=== PATIENT | female | born 1995 | race Caucasian/White ===

== ENCOUNTER 2018-06-22 14:05 | Emergency (ER) | payer OTHER, SELFPAY ==
[2018-06-22 14:07] VITALS: BP 161/82; PULSE 103; RESP 17; TEMP 36.3; O2SAT 100; BMI 32.4
[2018-06-22 15:21] VITALS: BP 141/85; PULSE 97; RESP 25; O2SAT 100
[2018-06-22 15:22] VITALS: O2SAT 100
--- NOTE | 2018-06-22 15:37 | EKG12_ITS ---
Test Reason : COUGH Blood Pressure : / mmHG Vent. Rate : 086 BPM Atrial Rate : 086 BPM P-R Int : 132 ms QRS Dur : 094 ms QT Int : 386 ms P-R-T Axes : 052 033 017 degrees QTc Int : 461 ms Normal sinus rhythm Normal ECG Confirmed by BLANCA HATHAWAY, CESAR ([id number]), brands editor POLINA ESPINOSA ([id number] on 06/24/2018 4:03:37 PM Referred By: PAT Confirmed By:CESAR RIOS MD
[2018-06-22 16:13] LABS: Internal QC Validated? YES +Cl - CLEAR BKGD; Pregnancy, Urine Negative Negative
[2018-06-22 16:22] LABS: Absolute Lymphocyte Count 2.49 X10^3/ul (0.83-4.51); Absolute Neutrophil Count 5.6 X10^3/uL (2.0-7.7); Basophil# 0.05 X10^3/uL; Basophil% 0.6 % (0-1); Eosinophil# 0.05 X10^3/uL; Eosinophils% 0.6 % (0-5); Hematocrit 40.2 % (37-47); Hemoglobin 13.4 g/dl (12.0-15.0); Lymphocyte # 2.49 X10^3/ul (4.0); Lymphocyte % 28.3 % (19-41); Mean Corp Hgb Conc 33.3 g/gl (32-36); Mean Corpuscular Hgb 29.5 pg (27.0-32.0); Mean Corpuscular Volume 88.5 fL (81-99); Mean Platelet Vol. 10.2 fl (6.2-12.0); Monocyte# 0.61 X10^3/uL; Monocyte% 6.9 % (0-10); Neutrophil # 5.59 X10^3/uL (2.7-7.7); Neutrophil % 63.4 % (47-70); Platelet Count 353 K/mm3 (150-450); RBC Distribution Width CV 12.6 % (11.6-14.6); RBC Distribution Width SD 40.3 fl (35.1-43.9); Red Blood Count 4.54 M/mm3 (4.2-5.4); White Blood Count 8.8 K/mm3 (4.4-11.0)
[2018-06-22 16:23] LABS: POSITIVE COUNT NO; POSITIVE DIFFERENTIAL NO; POSITIVE MORPHOLOGY NO
[2018-06-22 16:30] LABS: D-Dimer Quantitative (DVT/PE) 0.39 FEU/ug/m (0.27-0.49)
[2018-06-22 16:31] LABS: Anion Gap 10 (5-15); BUN 6 mg/dL (7-18); BUN/Creat Ratio 8.2 RATIO (10-20); Calcium,Total 8.6 mg/dL (8.5-10.1); Chloride 108 mmol/L (98-107); Creatinine, Serum 0.73 mg/dL (0.55-1.02); EST Glomerular Filtration Rate 104 mL/min (>60); Est Glom Filt Rate - Afr Amer 126 mL/min (>60); Estimated Creatinine Clearance 119.87 ml/min; Glucose 84 mg/dL (74-106); Sodium Level 140 mmol/L (136-145); Thyroid Stim Hormone (TSH) 3.41 uIU/mL (0.358-3.74)
--- NOTE | 2018-06-22 16:55 | ED.DCSUM_ITS ---
- ER Visit Summary Date of Service: 06/22/18 Chief Complaint: Cough History of Present Illness: The patient is a 23 F presenting for evaluation secondary to a cough. Patient reports that over the course of the last 2 weeks she has had a nonproductive cough. The associated with burning in her anterior right chest. Patient states that it has been associated with some rhinorrhea but denies any fevers she does endorse some generalized malaise. She also endorses that she has some mild shortness of breath. Patient was at urgent care today and was noted to have a heart rate in the 130s. She has a prior history of having a provoked DVT about 3 years ago. She has no provoking factors recently, and is not currently on anticoagulants. She is on a non-hormone control and is a non-smoker. Review of systems otherwise negative. Physical Examination: Vital signs are within normal limits, patient is afebrile. General: Patient is well-nourished well-developed and in no acute distress. Head: Normocephalic, atraumatic Eyes: Pupils equal round and reactive bilaterally, extra occular motion intact bialterally ENT: Moist mucous membranes, normal posterior oropharynx Neck: Supple, no lymphadenopathy, no JVD, no meningismus CVS: Heart regular rhythm with minimal tachycardia, no murmurs, rubs or gallops, radial pulses 2+ bilaterally Resp: Respirations nondistressed, lung sounds clear bilaterally Abdomen: Soft, nontender, nondistended, no palpable masses, normal bowel sounds Back: Nontender Extremities: Nontender, atraumatic, active full range of motion, no peripheral edema Skin: warm, no rashes, no petechia Neuro: Alert and oriented x 4, CN 2-12 intact, no lateralizing neurological defecits Psyc: Normal affect Test Results: EKG demonstrates ventricular rate of [address] segments normal T waves no evidence of WPW or Brugada morphology. Normal intervals. CBC, chemistry, troponin, d-dimer, TSH are only remarkable for mild hypokalemia 3.0 Emergency Department Course and Treatment: Patient presented for evaluation secondary to cough and tachycardia in the setting of history of DVT. She had a x-ray at the urgent care which was noted to be negative this was not repeated. Patient's workup was found to be negative except for mild hypokalemia for which she has a history of. Given the patient's somewhat persistent tachycardia malaise and the duration of the patient's cough, she potentially has an element of maybe walking pneumonia. Patient will be treated with a course of azithromycin and encouraged to follow-up with primary care. Disposition: Discharge Impression: 1. Nonproductive cough 2. Tachycardia This note was generated with [employer] dictation software. It may contain incorrect words, spelling, and punctuation that were not noted in review of the chart prior to signing ED Disposition - Plan for ED Patient: Disposition: Home or Assisted Living Chief Complaint: Cough Diagnosis: Cough Instructions: ED Upper Resp Infec Abx Tx Prescriptions: Azithromycin [Zithromax Z-Nico] 250 mg PO UD #1 box Referrals: Esther Joe, [facility] [Primary Care Provider] - 1 Week if not improving
[2018-06-22 17:12] VITALS: BP 136/78; PULSE 98; RESP 18; O2SAT 97
== END 2018-06-22 17:12 | disposition home or self-care (01) ==
PROVIDERS: Emergency Provider Emergency Medicine; Family Provider Nurse Practitioner Family; PCP Nurse Practitioner Family
DX: R05 Cough (principal); R00.0 Tachycardia, unspecified; Z86.718 Personal history of other venous thrombosis and embolism; Z79.899 Other long term (current) drug therapy
CPT/HCPCS: 80048; 81025; 84443; 84484; 85025; 85379; 93005; 99284